=== PATIENT | male | born 1985 | race Caucasian/White ===

== ENCOUNTER 2016-12-16 21:55 | Inpatient (IN) | payer OTHER ==
[~2016-12-16] VITALS: Ht 170.2 cm; Wt 74.3 kg
[2016-12-16 22:07] VITALS: BP 140/86; PULSE 121; RESP 18; O2SAT 97
--- NOTE | 2016-12-16 22:39 | ED.REPORT ---
HPI-Extremity Problem Lower Date of Service Dec 16, 2016 ED Provider: Mu Blunt MD 31 y/o male with a hx of IV drug abuse presents to the ED complaining of pain, redness, and swelling about the right foot onset this morning. Associated sx include fever and SOB. He is currently feeling somewhat better. Pt has been using IV drugs since he was 16 but is planning on seeking treatment. He has no history of cellulitis or liver disease. He last used a few hours ago. Nursing Notes Stated Complaint: R FOOT/ANKLE SWOLLEN Chief Complaint: Skin Rash/Abscess Nursing Notes Reviewed: Yes Allergies: Coded Allergies: apple (Verified Allergy, Unknown, 12/16/16) onion (Verified Allergy, Unknown, 12/16/16) Miscellaneous Medications ([None]) General Time Seen by MD: 22:37 Chief Complaint Foot injury right Hx Obtained From: Patient Arrived By: Walk-in Onset Occurred: 21 - 23 hours ago Symptom Duration: Since onset Location: : Foot right Quality: Painful Severity: Current: Moderate Severity: Maximum: Moderate Associated with: Reports: Fever Recent Healthcare: No recent doctor visit Similar Sx Previous: No Past Medical History Past Medical History IV drug abuse Past Surgical History R wrist tendon repair Smoking History Current Every Day Smoker, Heavy Tobacco Smoker Social History Drug Use: IV drugs Ambulatory Status Independent Review of Systems Constitutional: Reports: Fever Musculoskeletal: Reports: Extremity pain, Extremity swelling Skin: Reports Rash Complete sys rev & neg: except as marked. Respiratory: Reports: Shortness of breath Physical Exam Initial Vital Signs Vital Signs (First) Date Time Temp Pulse Resp B/P Pulse Ox O2 Delivery O2 Flow Rate FiO2 12/16/16 22:07 38.2 121 18 140/86 97 Room Air Initial VS: Reviewed, Vital signs normal Head / Eyes: Atraumatic, Normocephalic, PERRL ENT: Mucous membranes moist, Conjunctiva normal, No scleral icterus Neck: Supple, Full range of motion Respiratory: Breath sounds normal, Clear to auscultation, No respiratory distress Cardiovascular: Regular rate & rhythm, Heart sounds normal, Intact distal pulses Abdomen / GI: Soft, Non-tender, No guarding, No rebound, No distention Upper Extremities: No swelling, No tenderness Neurologic: Alert, Oriented, Nonfocal Psychiatric: Mood/affect normal, Behavior normal, Normal thought content Lower Extremity / Pelvis / MS: Atraumatic, Full range of motion Lymphangitic streaking extending from medial right foot up to the right knee. Ankle / Foot: Atraumatic, Neurologic intact, Vascular intact, No ligamentous injury, No compartment syndrome General/Constitutional: Awake, Alert Skin: Warm, Dry Stigmata of IV drug use diffusely. Back: Atraumatic, Full range of motion Psychiatric: Affect NL, Mood NL Interpretation & Diagnostics Lab Results Interpretation Result Diagram: 12/16/16 2345 12/16/16 2345 Test 12/16/16 23:45 White Blood Count 12.6th/mm3 (3.8-10.1) Red Blood Count 4.98mil/mm3 (4.40-5.80) Hemoglobin 13.6g/dL (13.8-17.2) Hematocrit 41.5% (41.0-50.0) Mean Corpuscular Volume 83.3fL (81-100) Mean Corpuscular Hemoglobin 27.3pg (27.0-35.0) Mean Corpuscular Hemoglobin Concent 32.8% (32.0-37.0) Red Cell Distribution Width 14.3% (12.3-15.4) Platelet Count 303bil/L (150-400) Neutrophils (%) (Auto) 77.7% (40-74) Lymphocytes (%) (Auto) 14.4% (14-46) Monocytes (%) (Auto) 6.3% (4-12) Eosinophils (%) (Auto) 1.2% (0-5) Basophils (%) (Auto) 0.2% (0-3) Band Neutrophils % 0% (1-5) Erythrocyte Sedimentation Rate 30mm/hr (0-15) Hold Purple Top Tube Received (Received) Prothrombin Time 9.7sec (8.1-12.5) Prothromb Time International Ratio 0.91ratio Activated Partial Thromboplast Time 30.4sec (22.8-33.0) D-Dimer 0.59mg/L FEU (<0.50) Hold Blue Top Tube Received (Received) Sodium Level 141mEq/L (134-144) Potassium Level 3.6mEq/L (3.5-5.2) Chloride Level 99mEq/L (97-108) Carbon Dioxide Level 26mmol/L (18-29) Blood Urea Nitrogen 8mg/dL (6-20) Creatinine 0.62mg/dL (0.76-1.27) Estimat Glomerular Filtration Rate 161mL/min (>59) Glucose Level 125mg/dL (60-99) Lactic Acid Level 2.0mmol/L (0.4-2.0) Calcium Level 9.3mg/dL (8.5-10.1) Phosphorus Level 3.3mg/dL (2.5-4.9) Magnesium Level 2.0mg/dL (1.6-2.6) Total Bilirubin 0.3mg/dL (0.0-1.2) Aspartate Amino Transf (AST/SGOT) 41U/L (0-50) Alanine Aminotransferase (ALT/SGPT) 46U/L (0-44) Alkaline Phosphatase 109U/L (25-150) Pro-B-Type Natriuretic Peptide 49.90pg/mL (0-86) Total Protein 8.2g/dL (6.4-8.4) Albumin 4.1g/dL (3.4-5.0) Lipase 12U/L (13-60) Thyroid Stimulating Hormone (TSH) 0.693uIU/mL (0.450-4.500) Hold Red Top Tube Received (Received) Hold [place] Top Tube Received (Received) Hold [place] Top Tube Received (Received) X-Ray Chest Interpretation View: Portable, 1 view Interpretation / Wet Read by: Wet read ED physician NL X-Ray Chest Findings: No infiltrate, No acute disease Re-Eval/Medical Decision Med Decision/Clinical Course 31-year-old with a sixteen year history of IV drug use presents with rapidly advancing cellulitis and lymphangitis in an area on his foot involved in IV drug use earlier this morning. He has had subjective fevers and chills. He has lymphangitis up to level the knee at this point. His admit now for IV antibiotics to assure that this is healing, as he is borderline sepsis by criteria. Transported down stable condition. Source of Hx: Old records Re-Evaluation/Progress : Time of Eval: 23:23 Re-Evaluation/Progress Note: Pt rechecked. Discussed diagnosis. Informed the pt of the plan to admit. Pt understands and agrees with plan. All questions addressed. Consultation : Referral / Consult Name: Alec Sanches MD Call Returned at: 22:58 Handle Turner: Will see patient, Agrees with eval, Agrees with plan, Accepts admit Note: Discussed case with Dr. Sanches, hospitalist, who agreed with the plan to admit pt for IV antibiotics. Counseled Regarding: Diagnosis, Lab results, Need for admission Discharge & Departure Impression: Primary Impression: Cellulitis of right foot Additional Impression: IV drug abuse Disposition: ADMITTED TO HOSPITAL Discharge Condition All VS Reviewed: Yes Condition: Stable Referrals: NOPCP (PCP) Lisaibkanika Attestation Portions of this note were transcribed by Keenan Moseley and Pina Aaron. I, Dr. Blunt personally performed the history, physical exam and medical decision -making; I reviewed and confirmed the accuracy of the information in the transcribed note. Signed by Keenan Moseley and Chino Guardado, 12/16/16 - [id number] Mu Blunt MD Dec 16, 2016 22:39 Pina Aaron Dec 16, 2016 22:45 KEENAN MOSELEY Dec 16, 2016 23:29
[2016-12-16] MEDS ORDERED: Meropenem Inj 1,000 MG in 0.9% Sodium Chloride 100 ML IV ONE (23:25)
[2016-12-16] MEDS ORDERED: Clindamycin Inj 900 MG in IV Premix 1 EACH IV ONE (23:25)
[2016-12-16] MEDS ORDERED: Vancomycin Dose per Pharmacist XX ONE (23:25)
[2016-12-16] MEDS ORDERED: 0.9% Sodium Chloride 1,000 ML IV ONE (23:25)
[2016-12-16] MEDS ORDERED: Alum-Mag Hydrox-Simeth 30 mL Suspension PO PRN (23:35)
[2016-12-16] MEDS ORDERED: Ondansetron 2 mg/mL 2 mL Inj IVPUSH PRN (23:35)
[2016-12-16] MEDS ORDERED: Polyethylene Glycol (PEG) 17 Gm Powder PO PRN (23:35)
--- NOTE | 2016-12-16 23:44 | PCM.HPMED ---
Subjective Date of Service Dec 16, 2016 Primary Provider: Admitting Physician: Primary Care Physician: Mario Attending Physician: Admit Status: From the Emergency Department Chief Complaint: Pain and swelling of right foot History of Present Illness: Pleasant 31yo man, IVDU with no other medical history reports swelling and redness in his right foot since this morning followed in the evening by intense pain whereupon he went to the emergency room. He states he felt that injecting his last dose in the top of his foot he hit a nerve or a bone and has trouble finding usable veins. He has not had an infection from drug use before. His drug use history started at age 12 when he was given marijuana by his father. He tried cocaine at age 13, progressed to pills, then smoking crushed oxycodone, and started injecting heroin at age 16. He has overdosed 3-4 times and gone through Rehab 4 times. He does want to try Rehab again. He is currently very hot, a little short of breath, denies headache, sore throat, chest pain, cough, nausea, diarrhea, constipation. He states he is feels chronically cold. Review of Systems: 14point ROS is otherwise negative except as noted above in the HPI. Allergies Coded Allergies: apple (Verified Allergy, Unknown, 12/16/16) onion (Verified Allergy, Unknown, 12/16/16) Home Medications None PMH Polysubstance abuse Surgical History None Family History Father is mentally ill, uses meth, and has COPD Mother is an alcoholic, but otherwise healthy as far as the patient knows. Social History Hx Alcohol Use: No Hx Substance Use: Yes (marijuana OCCAS) Hx Tobacco Use: Yes Smoking Status: Current Every Day Smoker, Heavy Tobacco Smoker Living Arrangement: with Friends/Roommate Exam Vital Signs Vital Sign - Last Date Time Temp Pulse Resp B/P Pulse Ox O2 Delivery O2 Flow Rate FiO2 12/16/16 22:07 38.2 121 18 140/86 97 Room Air Exam General: Alert, Oriented X3, Cooperative, No Acute Distress Head: Normocephalic, atraumatic. External ears normal. Eyes: PERRLA, EOMI. Anicteric sclerae. Mouth: Mouth Normal, Mucous Membranes Moist/[place] Neck: Neck supple with full range of motion. Chest & Lungs: Clear to auscultation bilaterally with no crackles, wheezes, or rhonchi. Cardiovascular: Regular Rate/Rhythm, Normal S1, Normal S2, No Murmurs/Rubs/ Gallops Abdomen: Non-tender, Non-distended, No masses, Normoactive bowel tones, Soft Musculoskeletal: Normal Range of Motion Extremities: Right foot is erythematous and edematous to just beyond the malleoli, no open wounds or visible puncture maria. Assessment & Plan Pleasant 31yo man, IVDU here with an infection of his right foot after injecting heroin to the dorsal surface of same. He is feverish, but otherwise his vital signs are stable. Blood draw has been difficult in the ED, no cultures taken yet, no IV. 1. Acute Right foot Cellulitis from IV drug injection with possible sepsis, no labs yet. -Blood cultures x2 ordered, IV therapy has been requested -Continue broad spectrum antibiotics ordered in the ED, but not started yet due to difficult IV start: Clindamycin 900mg IV q8h, Vancomycin per pharmacy, and Meropenem 1gm IV q8h -Bolus NS 1 liter IV as soon as possible. 2. Heroin withdrawal, likely, not currently symptomatic except for mydriasis and elevated temperature which could also be attributed to bacteremia. -Monitor for symptoms of restlessness, lacrimation, NVD. Watch for increased vital signs. -Lorazepam 1mg PO q4h PRN for agitation 3. Tobacco abuse -Nicotine patch ordered PRN PRN medications for nausea, dyspepsia, constipation ordered. Pain Evaluation: Adequate Pain Control VTE Prophylaxis: Sub-Q Enoxaparin Resuscitation Status: CPR: Attempt Resuscitation Harrison Sanchez DO Dec 16, 2016 23:44 Alec Sanches MD Dec 17, 2016 06:52
[2016-12-17] MEDS ORDERED: Vancomycin Inj 1,250 MG in 0.9% Sodium Chloride 250 ML IV ONE (00:05)
[2016-12-17 00:15] LABS: Mean Corpuscular Hemoglobin 27.3 pg (27.0-35.0); Mean Corpuscular Volume 83.3 fL (81-100)
[2016-12-17 00:16] LABS: BASOPHILS % (AUTO) 0.2 % (0-3); EOSINOPHILS % (AUTO) 1.2 % (0-5); MONOCYTES % (AUTO) 6.3 % (4-12); NEUTROPHILS % (AUTO) 77.7 % (40-74); Platelet Count 303 bil/L (150-400)
[2016-12-17] MEDS: Sodium Chloride LOK Flush 10 mL Syringe IVFLUSH SCH ×3 (00:26→16:39)
[2016-12-17 00:28] LABS: D-Dimer 0.59 mg/L FEU (<0.50); INR 0.91 ratio
[2016-12-17 00:34] LABS: ERYTHROCYTE SEDIMENTATION RATE 30 mm/hr (0-15)
[2016-12-17 00:42] LABS: Phosphorus 3.3 mg/dL (2.5-4.9)
[2016-12-17 01:57] VITALS: BP 127/85; PULSE 102; RESP 18; O2SAT 99
[2016-12-17 02:24] VITALS: BP 120/79; PULSE 104; RESP 22; O2SAT 100
--- NOTE | 2016-12-17 05:01 | NUR ---
Admit pt admitted on [facility] room. Pt complains mostly of right leg pain. Denies chest pain, sob, n/v or abd discomfort. Pt appears to be intoxicated and has been slow on response. Pt admitted to have used Heroin yesterday around 2100. Pt's VSS, and has been afebrile upon arrival to the floor. Will continue to monitor.
[2016-12-17] MEDS ORDERED: 0.9% Sodium Chloride 1,000 ML IV ONE (07:15)
--- NOTE | 2016-12-17 08:14 | DRSVH ---
PROCEDURE: X-RAY CHEST ONE VIEW, PORTABLE ([id number]) INDICATIONS: ivda, leg cellulitis TECHNIQUE: One view of the chest was acquired. COMPARISON: None. FINDINGS: Surgical changes and devices: There is a metallic BB type density overlying the central aspect of the left lower lung field. Lungs and pleura: No pleural effusions or pneumothorax. Lungs are clear. Mediastinum: Mediastinal contours appear normal. Heart size is normal. Bones and chest wall: No suspicious bony lesions. Overlying soft tissues appear unremarkable. IMPRESSION: Acute disease is not seen in this semiupright portable chest . Metallic BB type density over the left lower lung field. Dictated by: Charles Haro M.D. on 12/17/2016 at 8:11 Approved by: Charles Haro M.D. on 12/17/2016 at 8:12
[2016-12-17] MEDS ORDERED: Vancomycin Inj 1,000 MG in IV Premix 1 EACH IV SCH (08:30)
[2016-12-17] MEDS: Vancomycin Dose per Pharmacist XX SCH ×2 (08:30→09:22)
--- NOTE | 2016-12-17 08:49 | NUR ---
Admit nurse: Pt reports no home meds and no pharmacy preference
[2016-12-17 08:55] LABS: APPEARANCE,URINE HAZY (CLEAR,HAZY); COLOR,URINE YELLOW (YELLOW); OCCULT BLOOD,URINE NEGATIVE (NEGATIVE); PH,URINE 6.5 (5.0-8.0); UROBILINOGEN,URINE NORMAL (NORMAL)
--- NOTE | 2016-12-17 10:18 | PCM.CONPHA ---
Subjective Pain and swelling of right foot Reason for Pharmacy Consult: Vancomycin Dosing Assessment/Plan Assessment/Plan Pharmacy Kinetic Dosing Vancomycin Indication: Rt foot cellulitis/possible osteo Goal vanc trough: 15-20 mcg/ml based on possible bone involvement Pt wt: 74.3.kg Other ABX: Rocephin SCr: 0.62 WBC: 12.6 (12/16), last febrile: 12/17/16 @0200 Cultures: Blood pending Assessment/Plan: - Loading dose of 1,250 mg given. Received one dose of vanc 1,000mg but will increase dose given new details about possible bone involvement and possible higher metabolism given hx of IVDU -Will schedule vancomycin to 1,250mg Q8h. -Will schedule trough level to be drawn on 12/18@1600 Pharmacy appreciates consult and will continue to monitor. Thanks, Lester Moya, PharmD Lester Moya Dec 17, 2016 10:18
--- NOTE | 2016-12-17 11:15 | PCM.PNMED ---
Subjective Date of Service Dec 17, 2016 Subjective patient was in pain due to Rt foot, c/o chills, coldness collateral info from sister, patient recently newly developed seizure, grand-mal , at least 30-1min followed by confusion. last episode was about week ago seizure started since Oct, no seizures in the past, Exam Vital Signs Vital Sign - Last Date Time Temp Pulse Resp B/P Pulse Ox O2 Delivery O2 Flow Rate FiO2 12/17/16 02:24 37.3 104 22 120/79 100 Room Air Intake and Output 12/16/16 12/16/16 12/17/16 Cumulative From/Thru 15:00 23:00 07:00 12/16/16 22:07 - 12/17/16 02:09 Intake Total 1000 ml 1000 ml Balance 1000 ml 1000 ml Intake IV Total 1000 ml 1000 ml Exam NAD, comfortably laying down on the bed no JVD, MMM, no LAD RRR, nl s1, s2 no mrg CTAB, no w,c S,ND,NT,normoactive BS+ Rt foot, diffuse erythema, extremely tender, no demarcation, no ulcers/ fluctuance IVs and Medications Medications Reviewed: Medications were reviewed in detail Lab and Diagnostics Result Diagram: 12/16/16 2345 12/16/16 2345 Assessment & Plan Pleasant 31yo man, IVDU here with an infection of his right foot after injecting heroin to the dorsal surface of same. He is feverish, but otherwise his vital signs are stable. Blood draw has been difficult in the ED, no cultures taken yet, no IV. #sepsis, POA, SIRS+ wbc/HR/fever, source likely cellulitis vs underlying OM in the setting of IM heroin use -bolus 1liters in ED, another bolus 1liter this AM, followed by 100cc/hr, target MAP>65 -awaits BCX 2sets -trend fever curve, procalcitonin, wbc -s/p vanc, meropenem, clindamycin, will continue vanc, ceftriaxone for now #Diffuse rt foot erythema, tenderness, OPA, likely cellulitis vs underlying OM, -awaits MRI with Walod of Rt foot to rule out OM -morphine 1-4mg q2h for pain, monitor respiratory status to avoid excessive sedation #recent seizure hx, POA, would consider brain images if patient MS changes or another episode of seizure happens, -ativan 2mg prn for possible seizure -neurochecks q4h -try to avoid all drugs that lowers seizure threshold #Polysubstance abuse, nicotine/opioid, POA, appreciate SW/CM input, -monitor for possible etoh WD, opioid WD -added Utox panel -Nicotine patch ordered PRN dispo: likely 3-4more days, diet: regular dvt ppx: LMWH Full Code VTE Prophylaxis: Sub-Q Enoxaparin Resuscitation Status: CPR: Attempt Resuscitation Time spent 35 minutes Reese Nguyen MD Dec 17, 2016 11:15 Reese Nguyen MD Dec 17, 2016 11:15
[2016-12-17] MEDS ORDERED: cefTRIAXone Inj 2,000 MG in Dextrose 5% Minibag Plus 50 ML IV SCH (13:00)
[2016-12-17 13:43] VITALS: BP 141/92; PULSE 77; RESP 22; O2SAT 98
--- NOTE | 2016-12-17 13:58 | DRSVH ---
PROCEDURE: X-RAY CHEST, TWO VIEWS ([id number]) INDICATIONS: metalic BB pre MRI TECHNIQUE: 2 views of the chest were acquired. COMPARISON: [facility], CR, XR CHEST 1VW (PORTABLE), 12/16/2016, 23:37. FINDINGS: Surgical changes and devices: None. Lungs and pleura: No pleural effusions or pneumothorax. Lungs are clear. Mediastinum: Mediastinal contours are normal. Heart size is normal. Bones and chest wall: No suspicious bony abnormalities. Soft tissues appear unremarkable. Metallic BB type density overlying the anterior left chest wall. IMPRESSION: Left anterior chest wall BB type density redemonstrated otherwise normal chest. Dictated by: Wilfredo Love Zoe Interpreted: Cedric Dixon MD on 12/17/2016 at 13:57 Transcribed by: JOSEE on 12/17/2016 at 13:58 Approved by: Cedric Dixon M.D. on 12/17/2016 at 14:50
--- NOTE | 2016-12-17 15:03 | DRSVH ---
PROCEDURE: MRI FOREFOOT RIGHT WITH AND WITHOUT CONTRAST ([id number]) INDICATIONS: 31-year-old male with drug abuse and right foot infection. TECHNIQUE: Noncontrast sagittal T1 spin echo and T2 fast spin echo with fat saturation, long-axis T1 spin echo a nd T2 fast spin echo with fat saturation; short-axis T1 spin echo, proton density fast spin echo, and T2 fast spin echo with fat saturation through the forefoot. Post-contrast short axis, long axis, an d sagittal T1 spin echo with fat saturation through the forefoot. COMPARISON: None. FINDINGS: Image quality: Excellent. Bones and joints: No suspicious osseous enhancement or edema. No bone marrow contusions or metatars al stress fractures. The sesamoid bones appear in expected positions, without internal edema. No me tatarsophalangeal joint degeneration. No intraosseous lesions. Soft tissues: There is diffuse forefoot and midfoot subcutaneous edema, with associated regional enh ancement dorsal to the medial midfoot. The visualized deeper plantar foot muscles demonstrate normal signal and bulk. Visualized flexor and extensor tendons appear intact, without tenosynovitis. No ri m-enhancing fluid collections. IMPRESSION: Findings consistent with dorsal forefoot and midfoot cellulitis, without abscess formatio n. No evidence for pyomyositis or osteomyelitis. Dictated by: Vikash Pereira M.D. on 12/17/2016 at 14:54 Approved by: Vikash Pereira M.D. on 12/17/2016 at 15:01
--- NOTE | 2016-12-17 16:22 | NUR ---
Pain Patient reporting persistent throbbing pain in Rt foot/ankle of 10/10, decreasing to 8/10 with medications. Patient reporting that foot appears more swollen since last night. Foot/ankle shiney/pink in appearance. Attempting to keep foot elevated.
[2016-12-17] MEDS: Vancomycin Inj 1,250 MG in 0.9% Sodium Chloride 250 ML IV SCH (16:47)
[2016-12-17 17:28] VITALS: BP 122/73; PULSE 109; RESP 20; O2SAT 100
[2016-12-17 21:08] VITALS: BP 139/83; PULSE 109; RESP 25; O2SAT 99
[2016-12-17] MEDS ORDERED: Piper-Tazo 4.5 Gm/100 mL D5W Minibag Plus - Q8H over 4 hrs IV ONE ×2 (23:00)
[2016-12-18] MEDS: Vancomycin Inj 1,250 MG in 0.9% Sodium Chloride 250 ML IV SCH ×3 (00:49→16:48)
[2016-12-18] MEDS: Sodium Chloride LOK Flush 10 mL Syringe IVFLUSH SCH ×3 (00:50→16:49)
[2016-12-18 02:09] LABS: Hepatitis A Antibody IgM Negative (Negative); Hepatitis B Core Antibody IgM Negative (Negative)
--- NOTE | 2016-12-18 05:26 | NUR ---
NOC activity Pt complains of leg pain of 10/10. Has been concerned about the bruising around his foot and ankle. IV morphine administered PRN. IV ABx administered as scheduled. Pt's IV got infiltrated and repositioned to different location. Had an episode of fever, notified and ordered Tylenol one time dose and stat blood culture. Will continue to monitor.
[2016-12-18 06:08] VITALS: BP 113/73; PULSE 104; RESP 20; O2SAT 98
[2016-12-18 07:06] LABS: BASOPHILS % (AUTO) 0.2 % (0-3); EOSINOPHILS % (AUTO) 2.6 % (0-5); MONOCYTES % (AUTO) 10.7 % (4-12); Mean Corpuscular Hemoglobin 27.5 pg (27.0-35.0); Mean Corpuscular Volume 84.2 fL (81-100); NEUTROPHILS % (AUTO) 72.2 % (40-74); Platelet Count 255 bil/L (150-400)
[2016-12-18 07:30] LABS: Magnesium 2.1 mg/dL (1.6-2.6)
[2016-12-18] MEDS: Vancomycin Dose per Pharmacist XX SCH (08:30)
[2016-12-18] MEDS ORDERED: Piperacillin-Tazo 3.375 Gm Inj 3.375 GM in Dextrose 5% Minibag Plus 50 ML IV SCH (08:30)
[2016-12-18] MEDS: Morphine ER 30 mg (MS Contin) Tablet PO SCH ×2 (12:10→19:36)
--- NOTE | 2016-12-18 12:39 | PCM.PNMED ---
Subjective Date of Service Dec 18, 2016 Subjective Patient became febrile again with vancomycin and ceftriaxone therefore ceftriaxone was switched to Zosyn Patient remained tachycardic, fever was controlled with Tylenol Plan of severe pain on the right foot, not well controlled with when necessary morphine dosing ID was consulted for further recommendation Partial culture result came back gram-positive cocci ottles Exam Vital Signs Vital Sign - Last Date Time Temp Pulse Resp B/P Pulse Ox O2 Delivery O2 Flow Rate FiO2 12/18/16 06:08 37.0 104 20 113/73 98 Room Air Intake and Output 12/17/16 12/17/16 12/18/16 Cumulative From/Thru 15:00 23:00 07:00 12/16/16 22:07 - 12/18/16 05:42 Intake Total 600 ml 679 ml 2279 ml Output Total 1850 ml 1850 ml Balance -1250 ml 679 ml 429 ml Intake Oral 600 ml 600 ml IV Total 679 ml 1679 ml Output Urine Total 1850 ml 1850 ml # Bowel Movements 1 1 Exam NAD, comfortably laying down on the bed no JVD, MMM, no LAD RRR, nl s1, s2 no mrg CTAB, no w,c S,ND,NT,normoactive BS+ Rt foot, there is distinctive erythema, extremely tender, no demarcation, no ulcers/fluctuance IVs and Medications Medications Reviewed: Medications were reviewed in detail Lab and Diagnostics Result Diagram: 12/18/16 0530 12/18/16 0530 Assessment & Plan 31-year-old male with long hx of IVDU p/w Rt foot pain, fever. #sepsis, POA, SIRS+ wbc/HR/fever, source likely cellulitis, MRI 12/17 ruled out OM, abscess, fasciitis. prelim cultures+ GPC 2/4 -HD stable, but had recurrent fever yesterday, remained tachycardic, likely from pain response. -bolus 1liters in ED, another bolus 1liter this AM, followed by 100cc/hr, target MAP>65 -awaits final BCX 2sets -trend fever curve, procalcitonin, wbc -s/p vanc, meropenem, clindamycin, continue vanc, zosyn, appreciate ID input #Diffuse rt foot erythema, tenderness, OPA, likely cellulitis -abx as above -morphine 1-4mg q2h for pain, monitor respiratory status to avoid excessive sedation -added MS contine 30mg bid today for better pain control #recent seizure hx, POA, would consider brain images if patient MS changes or another episode of seizure happens, -ativan 2mg prn for possible seizure -neurochecks q4h -try to avoid all drugs that lowers seizure threshold #Polysubstance abuse, nicotine/opioid, POA, UTOX+opioid, amphetamine, no ETOH, -appreciate SW/CM input, -monitor for possible opioid WD -Nicotine patch ordered PRN dispo: likely 4-5more days, diet: regular dvt ppx: LMWH Full Code VTE Prophylaxis: Sub-Q Enoxaparin VTE Mechanical Devices: Venous Foot Pump Resuscitation Status: CPR: Attempt Resuscitation Time spent 35min Reese Nguyen MD Dec 18, 2016 12:39
[2016-12-18] MEDS: 0.9% Sodium Chloride 1,000 ML IV SCH ×2 (12:43→21:24)
[2016-12-18 14:11] VITALS: BP 128/73; PULSE 102; RESP 22; O2SAT 100
--- NOTE | 2016-12-18 14:22 | NUR ---
Social Work -Brief Note Data: Pt is a 31 y/o male admitted 12/17/16 for cellulitis r leg, post IVDA per H&P. Pt has no PCP and insurance is [facility]. Pt was discussed in rounds today and is very septic, will be in the hospital at least 2 more days. Pt resides with friends in [place] and is indepednent at baseline. Pt is a long-term IV drug user. See chemical dependency assessment. Pt is open to meeting with CDP from [facility] to discuss treatment options and JADA was completed. Friends/family will provide discharge home when it is time. SW will continue to follow for needs. Assessment: Pt who is independent at baseline. Retirement IV drug user Plan: Pt to discharge home via POV. Referral made to [facility] CDP. SW will continue to follow for needs. AUSTYN Soria
--- NOTE | 2016-12-18 14:36 | NUR ---
+ blood cultures pt with 2+ blood cultures (Cocci). aware. ID consult pending. IV Zosyn infusing. Pt tolerating abx well. Will continue to monitor.
--- NOTE | 2016-12-18 15:09 | NUR ---
Social Work - Chemical Dependency: Current Circumstances: SW met with pt at bedside to complete CD assessment and offer resources. SW role explained. Pt is a 31 y/o male admitted on 12/17/16 for cellulitis R leg, post IVDA per H&P. Pt reports he is a senior care IV drug user. Hx of substance abuse: Pt reports consistent IV drug use for 15 years. Pt states he uses heroin, as well as meth and marijuana. History of treatment programs: Pt states he has been through inpatient treatment 4 times in the past 15 years, most recently one year ago. He has also participated in outpatient treatment, lived at an [facility], and went to NA meetings. Hx of withdrawal symptoms. Pt states he has experienced withdrawal symptoms, and is presently experiencing them. Family hx: Pt states his father was addicted to "everything" Hx of sobriety and supports: Pt states he has been able to stay sober for up to two months at a time, and that meetings, talking to his sponsor, and living at an [facility] were helpful in staying sober. Pt's perceptions of consequences of use/motivation for tx: Pts states he would like to stop using and his motivation on a scale of 1 to 10 to stop is currently at a 10. Pt expressed openness to meeting with CDP from [facility] to get further support with treatment options. Suicide risk: Pt denies any current or past suicidal ideation. Discharge plan: Pt to discharge home via POV when medically stable. JADA completed for [facility]. Social work will continue to follow for needs. AUSTYN Soria
[2016-12-18] MEDS ORDERED: Vancomycin Serum Trough XX ONE (16:00)
--- NOTE | 2016-12-18 16:31 | DRSVH ---
[facility] [address] [place] [address] Echocardiogram Report Name: MARITA PEARSON BStudy Date: 12/18/2016 Height: 67 in Hospital Exam Location: [facility] Weight: 164 lb Gender: Male BSA: 1.9 m2 : 1985 Age: 31 yrs BP: 128/73 mmHg Reason For Study: Endocarditis Ordering Physician: Performed By: Kathleen [facility] Interpretation Summary The left ventricle is normal in size. The ejection fraction is estimated to be 55-60%. The right ventricle is normal in size, thickness and function. No significant valvular pathology seen. No obvious vegetation seen. Consider MARTHA if clinical suspicion for endocarditis is high. Procedure: A two-dimensional transthoracic echocardiogram with color flow and Doppler was performed. The study quality was technically good. There is no prior echocardiogram noted for this patient. The heart rate ranged between 100-104 bpm during the study. The patient was in sinus tachycardia with heart rates between 100-104 bpm during the exam. Left Ventricle: The left ventricle is normal in size. There is normal left ventricular wall thickness. There is no thrombus. The ejection fraction is estimated to be 55-60%. There are no focal wall motion abnormalities. Diastolic function could not be accurately assessed due to tachycardia. Right Ventricle: The right ventricle is normal in size, thickness and function. Atria: The left atrial size is normal. Right atrial size is normal. A prominent eustachian valve is noted. The interatrial septum is intact with no evidence for an atrial septal defect. Mitral Valve: The mitral valve is normal in structure and function. There is no vegetation seen on the mitral valve. There is no mitral regurgitation noted. Aortic Valve: The aortic valve is trileaflet. The aortic valve opens well. There is no aortic valvular vegetation. There is no aortic valve stenosis. No aortic regurgitation is present. Tricuspid Valve: The tricuspid valve is normal in structure and function. There is no tricuspid valve vegetation. No tricuspid regurgitation. Pulmonic Valve: The pulmonic valve is normal in structure and function. There is no vegetation on the pulmonic valve. There is no pulmonic valvular regurgitation. Great Vessels: The aortic root is normal size. The dimensions of the ascending aorta are normal. The IVC is of normal diameter and collapses less than 50% with a sniff. This suggests a right atrial pressure of 8 mm Hg. Pericardium/ Pleura There is no pericardial effusion. There is no pleural effusion. MMode/2D Measurements & Calculations LVIDd: 5.2 cm LA dimension Ao root diam LV bradford. diameter/BSA LVIDs: 3.4 cm (cm/m^2): 2.8 FS: 33.2 % IVC diam Aortic Jxn: 2.5 cm IVSd: 0.77 cm : 1.9 cm asc Aorta Diam LVPWd: 0.82 cm Ao Arch Diam (Prox Trans): 2.9 cm LV sys. diameter/BSA (cm/m^2): 1.9 Doppler Measurements & Calculations Ao V2 max MV P1/2t PA V2 max MV P1/2t max rose marie : 74.8 cm/sec : 72.2 msec : 82.9 cm/sec Ao max PG PA mean PG : 2.2 mmHg MVA(P1/2t): 3.0 cm2 Ao mean PG PA Accel Time : 1.1 mmHg Ao V2 mean PA V2 mean : 47.4 cm/sec : 59.2 cm/sec Ao V2 VTI: 14.6 cm Reading Physician:MARILY
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
[2016-12-18 17:53] VITALS: BP 129/85; PULSE 108; RESP 18; O2SAT 98
--- NOTE | 2016-12-18 18:42 | NUR ---
Temp pt with increasing temp, Dr notified. Waiting to hear back. Pt appears comfortable, denies chills. Tolerating IV abx well.
[2016-12-18 21:19] VITALS: BP 130/76; PULSE 105; RESP 18; O2SAT 99
[2016-12-19] MEDS: Sodium Chloride LOK Flush 10 mL Syringe IVFLUSH SCH ×4 (00:30→23:51)
[2016-12-19 00:35] VITALS: BP 124/73; PULSE 100; RESP 18; O2SAT 98
[2016-12-19] MEDS: Vancomycin Inj 1,250 MG in 0.9% Sodium Chloride 250 ML IV SCH ×2 (01:42→08:31)
--- NOTE | 2016-12-19 04:21 | NUR ---
NOC: tolerating IV vanco, Left brachial PIV. trough today at 1600. R foot elevated on pillow, continues to be red, warm to touch, tender. MS 2mg given [id number] thru noc, will begin stretching out time as he appears to be sleeping more, does not awaken so easily w/ verbal stimuli. temp last PM was 38.1, has been 37.0 tonight. encouraged to increase mobility. states he understands. friend remains at bedside.
[2016-12-19 04:41] VITALS: BP 126/68; PULSE 98; RESP 18; O2SAT 98
[2016-12-19 06:36] LABS: BASOPHILS % (AUTO) 0.1 % (0-3); EOSINOPHILS % (AUTO) 1.3 % (0-5); Mean Corpuscular Hemoglobin 27.7 pg (27.0-35.0); Mean Corpuscular Volume 82.8 fL (81-100); NEUTROPHILS % (AUTO) 77.8 % (40-74); Platelet Count 328 bil/L (150-400)
[2016-12-19 06:58] LABS: Magnesium 1.9 mg/dL (1.6-2.6); Phosphorus 3.5 mg/dL (2.5-4.9)
[2016-12-19] MEDS: Vancomycin Dose per Pharmacist XX SCH (08:32)
[2016-12-19] MEDS: 0.9% Sodium Chloride 1,000 ML IV SCH ×2 (08:32→23:51)
[2016-12-19] MEDS ORDERED: Vancomycin Inj 250 MG in 0.9% Sodium Chloride 100 ML IV ONE (09:15)
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
--- NOTE | 2016-12-19 10:59 | PCM.PNMED ---
Subjective Date of Service Dec 19, 2016 Subjective Pain was better better control with MS Contin Tachycardia is getting resolved Had another episode of fever yesterday afternoon Overall vision felt better Echocardiogram did not show any vegetations Exam Vital Signs Vital Sign - Last Date Time Temp Pulse Resp B/P Pulse Ox O2 Delivery O2 Flow Rate FiO2 12/19/16 04:41 36.8 98 18 126/68 98 Room Air Intake and Output 12/18/16 12/18/16 12/19/16 Cumulative From/Thru 15:00 23:00 07:00 12/16/16 22:07 - 12/19/16 06:03 Intake Total 1645 ml 1531 ml 5455 ml Output Total 1400 ml 1850 ml 5100 ml Balance 245 ml -319 ml 355 ml Intake Oral 420 ml 300 ml 1320 ml IV Total 1225 ml 1231 ml 4135 ml Output Urine Total 1400 ml 1850 ml 5100 ml # Bowel Movements 0 0 1 Exam NAD, comfortably laying down on the bed no JVD, MMM, no LAD RRR, nl s1, s2 no mrg CTAB, no w,c S,ND,NT,normoactive BS+ Rt foot, there is distinctive erythema, moderately tender, no demarcation, no ulcers/fluctuance IVs and Medications Medications Reviewed: Medications were reviewed in detail Lab and Diagnostics Result Diagram: 12/19/1651912/19/16519 Cardiac Echo Impressions Echocardiogram Report Name: MARITA PEARSON BStudy Date: 12/18/2016 Height: 67 in Hospital Exam Location: [facility] Weight: 164 lb Gender: Male BSA: 1.9 m2 : 1985 Age: 31 yrs BP: 128/73 mmHg Reason For Study: Endocarditis Ordering Physician: Performed By: Kathleen [facility]Saint [facility] Interpretation Summary The left ventricle is normal in size. The ejection fraction is estimated to be 55-60%. The right ventricle is normal in size, thickness and function. No significant valvular pathology seen. No obvious vegetation seen. Consider MARTHA if clinical suspicion for endocarditis is high. Assessment & Plan 31-year-old male with long hx of IVDU p/w Rt foot pain, fever. #sepsis, POA, SIRS+ wbc/HR/fever, source likely cellulitis, MRI 12/17 ruled out OM, abscess, fasciitis. prelim cultures staph+10/06. TTE neg for signs of endocarditis. -HD stable, but had recurrent fever for [id number], clinically improving. -bolus 1liters in ED, another bolus 1liter this AM, followed by 100cc/hr, target MAP>65 -awaits final BCX 2sets -trend fever curve, procalcitonin, wbc -s/p vanc, meropenem, clindamycin, continue vanc, zosyn was stopped 12/18, appreciate ID input -MARTHA indicated, will ask today. #Diffuse rt foot erythema, tenderness, OPA, likely cellulitis -abx as above -morphine 1-4mg q2h for pain, monitor respiratory status to avoid excessive sedation -added MS contine 30mg bid 12/18, seems working well. #recent seizure hx, POA, would consider brain images if patient MS changes or another episode of seizure happens, -ativan 2mg prn for possible seizure -neurochecks q4h -try to avoid all drugs that lowers seizure threshold #Polysubstance abuse, nicotine/opioid, POA, UTOX+opioid, amphetamine, no ETOH, -appreciate SW/CM input, -monitor for possible opioid WD -Nicotine patch ordered PRN dispo: likely 3-4more days, diet: regular, will place NPO after MN for possible MARTHA tomorrow dvt ppx: LMWH Full Code VTE Prophylaxis: Sub-Q Enoxaparin Resuscitation Status: CPR: Attempt Resuscitation Time spent 35min Reese Nguyen MD Dec 19, 2016 10:55
--- NOTE | 2016-12-19 11:12 | PCM.PHAPRO ---
Progress Pain and swelling of right foot VANCOMYCIN DOSING PER PHARMACY Indication: cellulitis vs osteo Trough: 9.0 Dose: 1250mg Q8 SCr: 0.5 (stable) WBC: 13.8 (uptrending); Febrile last PM Blood cx: S. aureus (sensi pending) A/P - Subtherapeutic level with worsening WBC. Still febrile at times. Positive staph cultures with sensi pending -Will increase dose to 1,500mg q8 given acute presentation -Trough scheduled for 12/20@1600 -Pharmacy will continue to monitor Lester Moya, PharmD Lester Moya Dec 19, 2016 11:06
--- NOTE | 2016-12-19 11:39 | NUR ---
Asleep/Pain meds All morning so far, pt has been sleeping. 1 male visitor in the room also asleep in the room. IV abx hung and pt tolerated it well. AM pain meds held d/t pts current state. Will continue to monitor.
[2016-12-19 13:30] VITALS: BP 126/78; PULSE 98; RESP 18; O2SAT 99
[2016-12-19] MEDS ORDERED: Vancomycin Serum Trough XX ONE (16:00)
[2016-12-19] MEDS: Vancomycin Inj 1,500 MG in 0.9% Sodium Chloride 500 ML IV SCH ×2 (16:22→23:51)
[2016-12-19] MEDS: Morphine ER 30 mg (MS Contin) Tablet PO SCH ×2 (16:23→20:49)
[2016-12-19 20:11] VITALS: BP 121/77; PULSE 106; RESP 18; O2SAT 100
[2016-12-20] VITALS (8 sets, daily range): BP systolic 97–126; BP diastolic 62–81; PULSE 90–107; RESP 17–21; O2SAT 96–100
--- NOTE | 2016-12-20 03:30 | NUR ---
NOC shift Patient has been completely alert and oriented while awake, reports that he is feeling "way better" and that right leg swelling has decreased. Reports pain at 5-8/10, decreased from 10/10 that he reported last night. One dose of PRN Morphine given this shift, and scheduled PO ER-Morphine. Vital signs stable, afebrile. IV Vanco infused as ordered, IV site remained asymptomatic. Patient had visitors in evening, one stayed overnight. Both appropriate with staff and cooperative with care. Patient aware that he is to be NPO at midnight for planned MARTHA. Frequent monitoring in place.
[2016-12-20] MEDS: 0.9% Sodium Chloride 1,000 ML IV SCH (04:40)
[2016-12-20 06:30] LABS: BASOPHILS % (AUTO) 0.2 % (0-3); EOSINOPHILS % (AUTO) 3.3 % (0-5); MONOCYTES % (AUTO) 10.8 % (4-12); Mean Corpuscular Hemoglobin 27.1 pg (27.0-35.0); Mean Corpuscular Volume 82.6 fL (81-100); NEUTROPHILS % (AUTO) 67.7 % (40-74); Platelet Count 334 bil/L (150-400)
[2016-12-20 06:46] LABS: Magnesium 1.9 mg/dL (1.6-2.6); Phosphorus 4.6 mg/dL (2.5-4.9)
[2016-12-20] MEDS ORDERED: Morphine ER 30 mg (MS Contin) Tablet PO SCH (08:30)
[2016-12-20] MEDS: Vancomycin Dose per Pharmacist XX SCH (08:30)
[2016-12-20] MEDS: Sodium Chloride LOK Flush 10 mL Syringe IVFLUSH SCH ×2 (08:30→17:18)
[2016-12-20] MEDS: Vancomycin Inj 1,500 MG in 0.9% Sodium Chloride 500 ML IV SCH ×2 (09:09→17:17)
[2016-12-20] MEDS ORDERED: Propofol 10,000 mCg/mL 20 mL Inj ONE (09:29)
--- NOTE | 2016-12-20 14:00 | NUR ---
MARTHA Pt transfered at 1400 from [facility] to [facility] via wheelchair. No s/s of distress at time of tfr pt returned from procedure at 1600. Pt denies any pain. NPO status changed to general diet. Pt ordered dinner.
--- NOTE | 2016-12-20 14:00 | NUR ---
TRANSFERED FROM [facility] FOR MARTHA.
--- NOTE | 2016-12-20 14:30 | NUR ---
MD HERE. SEE FLOW SHEETS
[2016-12-20] MEDS ORDERED: Lactated Ringer's 500 ML IV PRN (14:34)
[2016-12-20] MEDS ORDERED: Lactated Ringer's 1,000 ML IV SCH (14:34)
--- NOTE | 2016-12-20 14:34 | PCM.HPANE ---
Patient Data Date of Service: Dec 20, 2016 Surgeon Admitting Provider:Alec Sanches MD Attending Provider:Alec Sanches MD Primary Care Physician:Nopcp Other Provider: Reason for Visit Cellulitis R Leg, Post Ivda Ht/WT & BMI Height (Feet): 5 Height (Inches): 7.00 Weight (Kilograms): 74.300 Body Mass Index 25.71 Allergies Coded Allergies: apple (Verified Allergy, Unknown, 12/16/16) onion (Verified Allergy, Unknown, 12/16/16) Past Anesthesia History Anesthesia History: Denies:: Abnormal Airway, Anesthesia Reactions, Difficult Intubation, Fam Anesthesia Reaction, Fam Malignant Hypertherm, Malignant Hyperthermia Diabetes History Hx Diabetes?: No Medications Hypertension Medication: No Home Meds Incl Beta Wolf: No Reported Medications [None] No Conflict Check 07/18/13 History History of ENT Problems?: No HEENT History: Denies:: Abnormal Airway Cataracts Difficult Intubation Dysphagia Glaucoma Hearing Problem Sinus Problem TMJ Denture Type: Full- Upper Teeth Condition: Within Normal Limits Hx of Heart Problems?: No Cardiovascular History: Denies:: Congestive Heart Failure Hypertension Hx of Respiratory Problem?: No Respiratory History: Denies:: Tuberculosis Hx Neurologic Problems?: Yes Neurological History: Positive for:: Dizziness Headaches Seizures (States he had an episodes of seizure) Denies:: Alzheimer's Disease CVA Dementia Hx of GI Problems?: No Hx of Problems?: No HX of Peritoneal Dialysis: No Male Hx: Denies:: Prostate Problems Scrotal Mass Testicular Surgery Hx Musculoskeletal Problems?: No Hx of Psycho/Social Problems?: Yes Psycho Social History: Positive for:: Anxiety Denies:: Bipolar Disorder Hx Depression Suicide Attempt Hx Surgeries?: Yes (R wrist tendon repair) Other History: Denies:: Cancer Hospitalization Thyroid Disease History Blood Transfusions: Positive for:: Accept Blood Products? Denies:: Blood Transfuse Reaction Blood Transfusions Hx Diabetes: No Hx Alcohol Use: NoHx Substance Use: Yes (12/16 2100) Smoking Status: Current Every Day Smoker Heavy Tobacco Smoker Have You Smoked inLast 12 mo: YesApprox How Many Cigarettes/day: 09/05 PPD Stop/Bang Treated for Sleep Apnea?: No Do You Have a CPAP Machine?: No JERRELL Risk Assessment: Low Risk, <3 Yes Risk Assessment Category Category 1A: Patient has history of documented sleep apnea, and HAS NOT received any narcotic, sedative or anesthesia administration during this stay. Category 1B: Patient has history of documented sleep apnea, and HAS received any narcotic , sedative or anesthesia administration during this stay Category 2: Patient has SUSPECTED Obstructive Sleep Apnea, and HAS received any narcotic , sedative or anesthesia administration during this stay. Category 3: Patient has SUSPECTED Obstructive Sleep Apnea and HAS NOT received narcotic, sedative or anesthesia administration during this stay. Category 4: Outpatient in Procedural Areas with known sleep apnea or who screen positive for High Risk via the STOP/BANG questionnaire. Exam Exam Vital Signs Vital Signs Date Time Temp Pulse Resp B/P Pulse Ox O2 Delivery O2 Flow Rate FiO2 12/20/16 14:10 99 21 124/78 100 Room Air 12/20/16 13:23 36.7 92 17 120/81 100 Room Air 12/20/16 09:11 36.1 96 18 112/78 100 Room Air General Appearance: Oriented X3 HEENT/AIRWAY: MP 2 Lungs: Normal Air Movement Heart: Regular Rate/Rhythm Meds/Labs/Diagnostics Admission Meds Current Medications Vancomycin HCl/ Sodium Chloride (Vancocin Inj/ Normal Saline) 500 ml @ 333.333 mls/hr Q8 IV Last administered on 12/20/16 09:09; Start 12/19/16 at 16:30 Morphine Sulfate (MS Contin) 15 mg BID PO Last administered on 12/20/16 09:04 ; Start 12/20/16 at 08:30 Labs Test 12/16/16 23:45 12/17/16 08:00 12/17/16 08:23 12/17/16 12:15 Band Neutrophils % 0% (1-5) Erythrocyte Sedimentation Rate 30mm/hr (0-15) Hold Purple Top Tube Received (Received) Prothrombin Time 9.7sec (8.1-12.5) Prothromb Time International Ratio 0.91ratio Activated Partial Thromboplast Time 30.4sec (22.8-33.0) D-Dimer 0.59mg/L FEU (<0.50) Hold Blue Top Tube Received (Received) Pro-B-Type Natriuretic Peptide 49.90pg/mL (0-86) Lipase 12U/L (13-60) Thyroid Stimulating Hormone (TSH) 0.693uIU/mL (0.450-4.500) Hold [place] Top Tube Received (Received) Hold [place] Top Tube Received (Received) Alcohols < 10mg/dL (0-10) Urine Color Yellow (YELLOW) Urine Appearance Hazy (CLEAR,HAZY) Urine pH 6.5 (5.0-8.0) Urine Specific [place] 1.030 (1.003-1.035) Urine Protein Tracemg/dL (NEG,TRACE) Urine Glucose (UA) Negativemg/dL (NEGATIVE) Urine Ketones Negativemg/dL (NEGATIVE) Urine Occult Blood Negative (NEGATIVE) Urine Nitrite Negative (NEGATIVE) Urine Bilirubin Negative (NEGATIVE) Urine Urobilinogen Normalmg/dL (NORMAL) Urine Leukocyte Esterase Negative (NEGATIVE) Urine RBC 0-2/hpf (0-2) Urine WBC 0-5/hpf (0-5) Urine Epithelial Cells Occasional/hpf (NONE-MOD) Urine Crystals None seen (NONE SEEN) Urine Bacteria None/hpf (NONE-FEW) Urine Hyaline Casts None/lpf (NONE) Urine Granular Casts None seen (NONE SEEN) Urine Waxy Casts None seen (NONE SEEN) Urine Red Blood Cell Casts None seen (NONE SEEN) Urine White Blood Cell Casts None seen (NONE SEEN) Urine Mucus Present (None Seen) Urine Trichomonas None seen (NONE SEEN) Urine Yeast None (NONE SEEN) Urinalysis Comment Urine Culture Reflexed Not indicated Urine Opiates Screen Positive Urine Methadone Screen Negative Urine Barbiturates Screen Negative Urine Amphetamines Screen Positive Urine Benzodiazepines Screen Negative Urine Cocaine Metabolite Screen Negative Urine Cannabinoids Screen Negative Hepatitis A IgM Antibody Negative (Negative) Hepatitis B Surface Antigen Negative (Negative) Hepatitis B Core IgM Antibody Negative (Negative) Hepatitis C Antibody <0.1s/co ratio (0.0-0.9) Hepatitis C Comment Comment (.) HIV (1&2) Ag and Ab, 4th Generation Non reactive (Non Reactive) Test 12/17/16 15:45 12/17/16 21:50 12/18/16 16:00 12/19/16 05:20 Hold Red Top Tube Received (Received) Lactic Acid Level 2.2mmol/L (0.4-2.0) Vancomycin Level Trough 9.0mcg/mL Procalcitonin 0.09ng/mL (0.00-0.08) Test 12/20/16 05:30 White Blood Count 9.9th/mm3 (3.8-10.1) Red Blood Count 4.61mil/mm3 (4.40-5.80) Hemoglobin 12.5g/dL (13.8-17.2) Hematocrit 38.1% (41.0-50.0) Mean Corpuscular Volume 82.6fL (81-100) Mean Corpuscular Hemoglobin 27.1pg (27.0-35.0) Mean Corpuscular Hemoglobin Concent 32.8% (32.0-37.0) Red Cell Distribution Width 14.0% (12.3-15.4) Platelet Count 334bil/L (150-400) Neutrophils (%) (Auto) 67.7% (40-74) Lymphocytes (%) (Auto) 17.8% (14-46) Monocytes (%) (Auto) 10.8% (4-12) Eosinophils (%) (Auto) 3.3% (0-5) Basophils (%) (Auto) 0.2% (0-3) Sodium Level 140mEq/L (134-144) Potassium Level 4.7mEq/L (3.5-5.2) Chloride Level 102mEq/L (97-108) Carbon Dioxide Level 21mmol/L (18-29) Blood Urea Nitrogen 7mg/dL (6-20) Creatinine 0.43mg/dL (0.76-1.27) Estimat Glomerular Filtration Rate 245mL/min (>59) Glucose Level 102mg/dL (60-99) Calcium Level 9.0mg/dL (8.5-10.1) Phosphorus Level 4.6mg/dL (2.5-4.9) Magnesium Level 1.9mg/dL (1.6-2.6) Total Bilirubin 0.3mg/dL (0.0-1.2) Aspartate Amino Transf (AST/SGOT) 29U/L (0-50) Alanine Aminotransferase (ALT/SGPT) 27U/L (0-44) Alkaline Phosphatase 85U/L (25-150) Total Protein 6.8g/dL (6.4-8.4) Albumin 3.1g/dL (3.4-5.0) Plan Impression Patient chart reviewed, patient interviewed and anesthestic plan with risks, benefits, and alternatives discussed, and informed consent obtained. ASA Physical Status: ASA2 Mod Systemic Disease Anesthetic Plan: MAC Bene/Risks/Altern/Consents: Yes HP Complete Prior to Induction: Yes Mando Bond MD Dec 20, 2016 14:33
[2016-12-20] MEDS ORDERED: Ondansetron 2 mg/mL 2 mL Inj IVPUSH PRN ×2 (14:35→16:25)
[2016-12-20] MEDS ORDERED: EPHEDrine Sulfate 50 mg/mL Inj IVPUSH PRN (14:35)
[2016-12-20] MEDS ORDERED: MetoCLOpramide 5 mg/mL 2 mL Inj IVPUSH PRN (14:35)
[2016-12-20] MEDS ORDERED: Dexamethasone 4 mg/mL Inj IVPUSH PRN (14:35)
[2016-12-20] MEDS ORDERED: Phenylephrine 10,000 mCg/mL Inj IVPUSH PRN (14:35)
--- NOTE | 2016-12-20 14:44 | PCM.PNMED ---
Subjective Date of Service Dec 20, 2016 Subjective Patient feels much better today Awaiting MARTHA per later today less painful. slept well afebrile, BCX showed MSSA Exam Vital Signs Vital Sign - Last Date Time Temp Pulse Resp B/P Pulse Ox O2 Delivery O2 Flow Rate FiO2 12/20/16 14:10 99 21 124/78 100 Room Air 12/20/16 13:23 36.7 Intake and Output 12/19/16 12/19/16 12/20/16 Cumulative From/Thru 15:00 23:00 07:00 12/16/16 22:07 - 12/20/16 06:02 Intake Total 1216 ml 241 ml 1695 ml 8607 ml Output Total 5100 ml Balance 1216 ml 241 ml 1695 ml 3507 ml Intake Oral 400 ml 1720 ml IV Total 1216 ml 241 ml 1295 ml 6887 ml Output Urine Total 5100 ml # Voids 2 2 # Bowel Movements 1 Exam NAD, comfortably laying down on the bed no JVD, MMM, no LAD RRR, nl s1, s2 no mrg CTAB, no w,c S,ND,NT,normoactive BS+ Rt foot, there is distinctive erythema, moderately tender, no demarcation, no ulcers/fluctuance IVs and Medications Medications Reviewed: Medications were reviewed in detail Lab and Diagnostics Result Diagram: 12/20/1652912/20/16529 Cardiac Echo Impressions Echocardiogram Report Name: MARITA PEARSON BStudy Date: 12/18/2016 Height: 67 in Hospital Exam Location: [facility] Weight: 164 lb Gender: Male BSA: 1.9 m2 : 1985 Age: 31 yrs BP: 128/73 mmHg Reason For Study: Endocarditis Ordering Physician: Performed By: [facility] Interpretation Summary The left ventricle is normal in size. The ejection fraction is estimated to be 55-60%. The right ventricle is normal in size, thickness and function. No significant valvular pathology seen. No obvious vegetation seen. Consider MARTHA if clinical suspicion for endocarditis is high. Assessment & Plan 31-year-old male with long hx of IVDU p/w Rt foot pain, fever. #sepsis, POA, SIRS+ wbc/HR/fever, source likely cellulitis, MRI 12/17 ruled out OM, abscess, fasciitis. prelim cultures staph+10/06. TTE neg for signs of endocarditis.BCX 2sets MSSA+ -HD stable, but had recurrent fever for [id number], clinically improving. -bolus 1liters in ED, another bolus 1liter this AM, followed by 100cc/hr, target MAP>65, stopped fluid today. -trend fever curve, procalcitonin, wbc -s/p vanc, meropenem, clindamycin, continue vanc, zosyn was stopped 12/18, likely switch to first gen cephalosporin, appreciate ID input -Tentative MARTHA scheduled today per #Diffuse rt foot erythema, tenderness, OPA, likely cellulitis -abx as above -morphine 1-4mg q2h for pain, monitor respiratory status to avoid excessive sedation -added MS contine 30mg bid 12/18,decreased to 15mg today given clinically improvement. #recent seizure hx, POA, would consider brain images if patient MS changes or another episode of seizure happens, -ativan 2mg prn for possible seizure -neurochecks q4h -try to avoid all drugs that lowers seizure threshold #Polysubstance abuse, nicotine/opioid, POA, UTOX+opioid, amphetamine, no ETOH, -appreciate SW/CM input, -monitor for possible opioid WD -Nicotine patch ordered PRN dispo: likely tomorrow home if oral abx diet:resume diet after MARTHA dvt ppx: LMWH Full Code VTE Prophylaxis: Sub-Q Enoxaparin VTE Mechanical Devices: Venous Foot Pump Resuscitation Status: CPR: Attempt Resuscitation Time spent 35nmin Reese Nguyen MD Dec 20, 2016 14:44
--- NOTE | 2016-12-20 15:15 | NUR ---
PROCEDURE COMPLETE. SEE POST PROCEDURE FLOW SHEETS
--- NOTE | 2016-12-20 15:55 | NUR ---
[place] [facility] [place]
[2016-12-20] MEDS ORDERED: Vancomycin Serum Trough XX ONE (16:00)
[2016-12-20] MEDS ORDERED: 0.9% Sodium Chloride 1,000 ML IV ONE (16:23)
[2016-12-20] MEDS ORDERED: HYDROcodone-APAP 5-325 mg Tablet PO PRN (16:25)
--- NOTE | 2016-12-20 18:03 | DRSVH ---
[facility] [address] [place] [address] Echocardiogram Report Name: MARITA PEARSON BStudy Date: 12/20/2016 Height: 67 in Hospital Exam Location: [facility] Weight: 164 lb Gender: Male BSA: 1.9 m2 : 1985 Age: 31 yrs BP: 126/80 mmHg Ordering Physician: Performed By: Obdulia Zhao Referring Physician: DR. Yuan RAMIREZ Interpretation Summary Normal sinus rhythm. Normal LV size, wall thickness, wall motion and EF There are normal chamber sizes. No significant valvular abnormalities. No evidence of vegetation Procedure: Informed consent for Transesophageal Echocardiogram, and use of a contrast agent as needed, was obtained prior to the procedure. The patient was brought to the [facility] in a fasting state. Sedation was managed by anesthesiologist; see anesthesiology notes for details. The transesophageal probe was passed without difficulty. The patient's vital signs, including blood pressure, heart rate, pulse oximetry and cardiac rhythm were monitored throughout the procedure and remained stable. A 2D transesophageal echocardiogram with spectral and color flow Doppler was performed. The usual views were obtained; basal, mid-esophageal, transgastric and aortic views. The patient tolerated the procedure well without evidence of orophangeal or esophageal trauma. The patient was in normal sinus rhythm during the exam. There were no complications. Left Ventricle: The left ventricle is normal in size, wall thickness, and systolic function without any focal wall motion abnormalities. Right Ventricle: The right ventricle is normal in size and function. Atria: Both atria are normal in size. There is no Doppler evidence for an atrial septal defect. Mitral Valve: The mitral valve leaflets appear normal. There is no evidence of stenosis, fluttering, or prolapse. There is no vegetation seen on the mitral valve. There is no mitral regurgitation noted. Aortic Valve: The aortic valve is trileaflet. The aortic valve opens well. There is no aortic valvular vegetation. No aortic regurgitation is present. Tricuspid Valve: The tricuspid valve leaflets are thin and pliable. There is no tricuspid valve vegetation. No tricuspid regurgitation. Pulmonic Valve: The pulmonic valve is not well seen, but is grossly normal. Reading Physician:06:02 PM
[2016-12-20] MEDS ORDERED: Morphine ER 15 mg (MS Contin) Tablet PO SCH (20:30)
--- NOTE | 2016-12-20 21:59 | NUR ---
NOC activity: Tolerated MARTHA procedure today, negative. continues w/ Vanco, otherwise LFA PIV TKO. tolerating OOB to shower tonight. R foot redness appears improved. ROM and weight bearing w/o problems. reports pain improved, tolerating decreased dose of MS contin. several visitors tonight, including his 2 children. CTM for changes.
[2016-12-21] MEDS: Sodium Chloride LOK Flush 10 mL Syringe IVFLUSH SCH (00:43)
[2016-12-21] MEDS: Vancomycin Inj 1,500 MG in 0.9% Sodium Chloride 500 ML IV SCH (00:43)
[2016-12-21 05:52] VITALS: BP 108/77; PULSE 87; RESP 18; O2SAT 100
[2016-12-21] MEDS ORDERED: CEPH-512 PO (07:34)
[2016-12-21] MEDS ORDERED: OXYC1TAB24 PO (07:50)
--- NOTE | 2016-12-21 07:53 | PCM.DIMED ---
Discharge Instructions Date of Service Dec 21, 2016 Dates of Hospitalization Dec 17, 2016 at 00:37 Discharge Diagnosis Discharge Diagnosis sepsis secondary to MSSA bactremia, cellulitis Medication Instructions please finish Keflex for 10days Diet No restrictions Activity No restrictions Patient Instructions You were hospitalized with severe infection in your leg, turning into systemic infection. Please note that we arranged appointment with new doctor and [facility]. Please check with them later for exact time of appointment You are strongly encouraged to follow up with primary doctor in 2weeks Follow-up Provider: [facility] Follow-up with PCP in: 2 weeks Reese Nguyen MD Dec 21, 2016 07:53
--- NOTE | 2016-12-21 08:35 | NUR ---
Social Work: Discharge Data: Pt is on day 4 of hospitalization. D/C orders are in. CDP met with pt yesterday and is pursuing outpt treatment for his chemical dependency. stated in rounds that pt will d/c with POABX. No further AUTOMATIC GRINDING MACHINE OPERATOR needs at this time. AUTOMATIC GRINDING MACHINE OPERATOR will continue to follow if needs arise. Assessment: Pt who is independent at baseline. Plan: Pt will d/c home today via POV and is pursuing outpt treatment for CD with CDP from [place]. No further AUTOMATIC GRINDING MACHINE OPERATOR needs at this time. AUTOMATIC GRINDING MACHINE OPERATOR will continue to follow if needs arise. AUSTYN Hitchcock
--- NOTE | 2016-12-21 08:40 | NUR ---
POC Nurse entered room at 0735 and patient states he needed to leave for court. RN paged Doctor Nguyen at 0745. Dr. Nguyen called back at 0755 and said he would be to floor to discharge patient. IV discontinued at [address] Nguyen's request. Discharge instructions were given to patient by QUENTIN Oquendo. Patient taken out in wheelchair at 0835, no s/s of distress or pain.
--- NOTE | 2016-12-22 16:42 | PCM.DC.MED ---
Discharge Summary Date of Service Dec 21, 2016 Dates of Hospitalization Date of Hospital Admission Dec 17, 2016 at 00:37 Date of Discharge: Dec 21, 2016 Providers: Admitting Physician: Alec Sanches MD Primary Care Physician: Nopcp Attending Physician: Alec Sanches MD Diagnosis at Time of Discharge Diagnosis at Time of Discharge sepsis secondary to MSSA bactremia frp, Rt foot cellulitis Polysubstance abuse, IVDU, opioid, amphetamine, Consultations ID Procedures XRay, CTs & MRIs PROCEDURE: X-RAY CHEST, TWO VIEWS ([id number]) INDICATIONS: metalic BB pre MRI TECHNIQUE: 2 views of the chest were acquired. COMPARISON: [facility], CR, XR CHEST 1VW (PORTABLE), 12/16/2016, 23: 37. FINDINGS: Surgical changes and devices: None. Lungs and pleura: No pleural effusions or pneumothorax. Lungs are clear. Mediastinum: Mediastinal contours are normal. Heart size is normal. Bones and chest wall: No suspicious bony abnormalities. Soft tissues appear unremarkable. Metallic BB type density overlying the anterior left chest wall. IMPRESSION: Left anterior chest wall BB type density redemonstrated otherwise normal chest. Dictated by: Wilfredo Love RRA Interpreted: Cedric Dixon MD on 12/17/2016 at 13:57 Transcribed by: JOSEE on 12/17/2016 at 13:58 Approved by: Cedric Dixon M.D. on 12/17/2016 at 14:50 PROCEDURE: MRI FOREFOOT RIGHT WITH AND WITHOUT CONTRAST ([id number]) INDICATIONS: 31-year-old male with drug abuse and right foot infection. TECHNIQUE: Noncontrast sagittal T1 spin echo and T2 fast spin echo with fat saturation, long-axis T1 spin echo and T2 fast spin echo with fat saturation; short-axis T1 spin echo, proton density fast spin echo, and T2 fast spin echo with fat saturation through the forefoot. Post-contrast short axis, long axis, and sagittal T1 spin echo with fat saturation through the forefoot. COMPARISON: None. FINDINGS: Image quality: Excellent. Bones and joints: No suspicious osseous enhancement or edema. No bone marrow contusions or metatarsal stress fractures. The sesamoid bones appear in expected positions, without internal edema. No metatarsophalangeal joint degeneration. No intraosseous lesions. Soft tissues: There is diffuse forefoot and midfoot subcutaneous edema, with associated regional enhancement dorsal to the medial midfoot. The visualized deeper plantar foot muscles demonstrate normal signal and bulk. Visualized flexor and extensor tendons appear intact, without tenosynovitis. No rim- enhancing fluid collections. IMPRESSION: Findings consistent with dorsal forefoot and midfoot cellulitis, without abscess formation. No evidence for pyomyositis or osteomyelitis. Dictated by: Vikash Pereira M.D. on 12/17/2016 at 14:54 Approved by: Vikash Pereira M.D. on 12/17/2016 at 15:01 Cardiac Echo Impression Echocardiogram Report Name: MARITA PEARSON BStudy Date: 12/18/2016 Height: 67 in Hospital Exam Location: [facility] Weight: 164 lb Gender: Male BSA: 1.9 m2 : 1985 Age: 31 yrs BP: 128/73 mmHg Reason For Study: Endocarditis Ordering Physician: Performed By: Kathleen [facility] Interpretation Summary The left ventricle is normal in size. The ejection fraction is estimated to be 55-60%. The right ventricle is normal in size, thickness and function. No significant valvular pathology seen. No obvious vegetation seen. Consider MARTHA if clinical suspicion for endocarditis is high. Brief History HPI obtained by 12/17 Pleasant 31yo man, IVDU with no other medical history reports swelling and redness in his right foot since this morning followed in the evening by intense pain whereupon he went to the emergency room. He states he felt that injecting his last dose in the top of his foot he hit a nerve or a bone and has trouble finding usable veins. He has not had an infection from drug use before. His drug use history started at age 12 when he was given marijuana by his father. He tried cocaine at age 13, progressed to pills, then smoking crushed oxycodone, and started injecting heroin at age 16. He has overdosed 3-4 times and gone through Rehab 4 times. He does want to try Rehab again. He is currently very hot, a little short of breath, denies headache, sore throat, chest pain, cough, nausea, diarrhea, constipation. He states he is feels chronically cold. Hospital Course 31-year-old male with long hx of IVDU p/w Rt foot pain, fever. #Sepsis, POA, SIRS+ wbc/HR/fever, source was cellulitis on Rt foot. MRI 12/17 ruled out OM, abscess, fasciitis. pt did have bacteremia MSSA+2/4 bottles. pt underwent TTE neg for signs of endocarditis. MARTHA also didn't show vegetation. patient was initially started on vancomycin, meropenem, clindamycin, in ED, continued vanc, zosyn. zosyn was stopped 12/18 based on cultures. Pain was controlled with MScontine 30mg bid, which was titrated off upon d/c. Since pt anxiously wanted to leave and had to attend to the court, pt was discharged with Keflex however, as per ID recommendation, this regimen might be suboptimal , recommended dalbavancin iv one dose, which was planned to [place] [facility] Plan was explained. Patient agreed to return to hospital given this life threatening infection. PICC for iv abx infusion was discouraged given his active IVDU. #recent seizure like hx, POA, pt didn't have any episode throughout hospitalization. #Polysubstance abuse, nicotine/opioid, UTOX+opioid, amphetamine, no ETOH, resources were given, pt seemed to be motivated for complete cessation of drugs. Exam Vital Signs (Last) Date Time Temp Pulse Resp B/P Pulse Ox O2 Delivery O2 Flow Rate FiO2 12/21/16 05:52 36.6 87 18 108/77 100 Room Air 12/20/16 15:30 4.00 Exam NAD, comfortably laying down on the bed no JVD, MMM, no LAD RRR, nl s1, s2 no mrg CTAB, no w,c S,ND,NT,normoactive BS+ Rt foot, there is distinctive erythema, moderately tender, no demarcation, no ulcers/fluctuance, significantly improved since admission Test 12/16/16 23:45 12/17/16 08:00 12/17/16 08:23 12/17/16 12:15 Band Neutrophils % 0% (1-5) Erythrocyte Sedimentation Rate 30mm/hr (0-15) Hold Purple Top Tube Received (Received) Prothrombin Time 9.7sec (8.1-12.5) Prothromb Time International Ratio 0.91ratio Activated Partial Thromboplast Time 30.4sec (22.8-33.0) D-Dimer 0.59mg/L FEU (<0.50) Hold Blue Top Tube Received (Received) Pro-B-Type Natriuretic Peptide 49.90pg/mL (0-86) Lipase 12U/L (13-60) Thyroid Stimulating Hormone (TSH) 0.693uIU/mL (0.450-4.500) Hold [place] Top Tube Received (Received) Hold Silva Top Tube Received (Received) Alcohols < 10mg/dL (0-10) Urine Color Yellow (YELLOW) Urine Appearance Hazy (CLEAR,HAZY) Urine pH 6.5 (5.0-8.0) Urine Specific [place] 1.030 (1.003-1.035) Urine Protein Tracemg/dL (NEG,TRACE) Urine Glucose (UA) Negativemg/dL (NEGATIVE) Urine Ketones Negativemg/dL (NEGATIVE) Urine Occult Blood Negative (NEGATIVE) Urine Nitrite Negative (NEGATIVE) Urine Bilirubin Negative (NEGATIVE) Urine Urobilinogen Normalmg/dL (NORMAL) Urine Leukocyte Esterase Negative (NEGATIVE) Urine RBC 0-2/hpf (0-2) Urine WBC 0-5/hpf (0-5) Urine Epithelial Cells Occasional/hpf (NONE-MOD) Urine Crystals None seen (NONE SEEN) Urine Bacteria None/hpf (NONE-FEW) Urine Hyaline Casts None/lpf (NONE) Urine Granular Casts None seen (NONE SEEN) Urine Waxy Casts None seen (NONE SEEN) Urine Red Blood Cell Casts None seen (NONE SEEN) Urine White Blood Cell Casts None seen (NONE SEEN) Urine Mucus Present (None Seen) Urine Trichomonas None seen (NONE SEEN) Urine Yeast None (NONE SEEN) Urinalysis Comment Urine Culture Reflexed Not indicated Urine Opiates Screen Positive Urine Methadone Screen Negative Urine Barbiturates Screen Negative Urine Amphetamines Screen Positive Urine Benzodiazepines Screen Negative Urine Cocaine Metabolite Screen Negative Urine Cannabinoids Screen Negative Hepatitis A IgM Antibody Negative (Negative) Hepatitis B Surface Antigen Negative (Negative) Hepatitis B Core IgM Antibody Negative (Negative) Hepatitis C Antibody <0.1s/co ratio (0.0-0.9) Hepatitis C Comment Comment (.) HIV (1&2) Ag and Ab, 4th Generation Non reactive (Non Reactive) Test 12/17/16 15:45 12/17/16 21:50 12/19/16 05:20 12/20/16 05:30 Hold Red Top Tube Received (Received) Lactic Acid Level 2.2mmol/L (0.4-2.0) Procalcitonin 0.09ng/mL (0.00-0.08) White Blood Count 9.9th/mm3 (3.8-10.1) Red Blood Count 4.61mil/mm3 (4.40-5.80) Hemoglobin 12.5g/dL (13.8-17.2) Hematocrit 38.1% (41.0-50.0) Mean Corpuscular Volume 82.6fL (81-100) Mean Corpuscular Hemoglobin 27.1pg (27.0-35.0) Mean Corpuscular Hemoglobin Concent 32.8% (32.0-37.0) Red Cell Distribution Width 14.0% (12.3-15.4) Platelet Count 334bil/L (150-400) Neutrophils (%) (Auto) 67.7% (40-74) Lymphocytes (%) (Auto) 17.8% (14-46) Monocytes (%) (Auto) 10.8% (4-12) Eosinophils (%) (Auto) 3.3% (0-5) Basophils (%) (Auto) 0.2% (0-3) Sodium Level 140mEq/L (134-144) Potassium Level 4.7mEq/L (3.5-5.2) Chloride Level 102mEq/L (97-108) Carbon Dioxide Level 21mmol/L (18-29) Blood Urea Nitrogen 7mg/dL (6-20) Creatinine 0.43mg/dL (0.76-1.27) Estimat Glomerular Filtration Rate 245mL/min (>59) Glucose Level 102mg/dL (60-99) Calcium Level 9.0mg/dL (8.5-10.1) Phosphorus Level 4.6mg/dL (2.5-4.9) Magnesium Level 1.9mg/dL (1.6-2.6) Total Bilirubin 0.3mg/dL (0.0-1.2) Aspartate Amino Transf (AST/SGOT) 29U/L (0-50) Alanine Aminotransferase (ALT/SGPT) 27U/L (0-44) Alkaline Phosphatase 85U/L (25-150) Total Protein 6.8g/dL (6.4-8.4) Albumin 3.1g/dL (3.4-5.0) Test 12/20/16 16:25 Vancomycin Level Trough 12.8mcg/mL Discharge Medications Discharge Medications Cephalexin (Keflex) 500 Mg Capsule 500 MG PO QID Prescribed by: REESE ELIZABETH MD As needed oxyCODONE-Acetaminophen 5-325 mg (oxyCODONE-Acetaminophen 5-325 mg) 1 Each Tablet 1 TAB PO Q4H PRN PRN For Pain Prescribed by: REESE ELIZABETH MD Miscellaneous Medications ([None]) (Reported) Additional med instructions please finish Keflex for 10days Followup Plan Disposition: home Discharge Diet: No restrictions Discharge Activity: No restrictions Patient Instructions You were hospitalized with severe infection in your leg, turning into systemic infection. Please note that we arranged appointment with new doctor and [facility]. Please check with them later for exact time of appointment You are strongly encouraged to follow up with primary doctor in 2weeks Follow-up Provider: [facility] Follow-up with PCP in: 2 weeks Time spent 65min Reese Elizabeth MD Dec 21, 2016 15:41
== END 2016-12-21 08:40 | disposition home or self-care (01) | DRG 872 ==
LOC: SED 21:55 → MPC 12-17 00:37
PROVIDERS: ADMIT Hospitalist; ATTEND Hospitalist
PROC: B246ZZ4 Ultrasonography of Right and Left Heart, Transesophageal (ICD-10-PCS; principal; 2016-12-20)
DX: A41.01 Sepsis due to Methicillin susceptible Staphylococcus aureus (principal); L03.115 Cellulitis of right lower limb; F17.200 Nicotine dependence, unspecified, uncomplicated; F12.90 Cannabis use, unspecified, uncomplicated; F11.10 Opioid abuse, uncomplicated

== ENCOUNTER 2017-05-17 20:18 | Emergency (ER) | payer SELFPAY ==
[~2017-05-17] VITALS: Ht 172.7 cm; Wt 73.6 kg
[~2017-05-17 20:18] MED LIST: CEPH-512 PO; OXYC1TAB24 PO
[2017-05-17 20:21] VITALS: BP 129/87; PULSE 111; RESP 16; O2SAT 100
--- NOTE | 2017-05-17 22:57 | ED.REPORT ---
HPI-Rash / Abscess Date of Service May 17, 2017 ED Provider: Jonathon Magallon MD Patient is a 32 y/o male with history of MRSA and IV heroin use who presents to the ED complaining of a painful abscess on his upper right arm onset 2 days ago. He reports injecting near the area in his arm. Patient last used heroin around 1730 this evening and uses approximately 1 gram a day. The patient states he has never had an abscess before. Nursing Notes Stated Complaint: ABSCESS ON LEFT ARM Chief Complaint: General Complaint Nursing Notes Reviewed: Yes Allergies: Coded Allergies: apple (Verified Allergy, Unknown, 05/17/17) onion (Verified Allergy, Unknown, 05/17/17) Scheduled Buprenorphine/Naloxone 8-2 mg (Buprenorphine/Naloxone 8-2 mg) 1 Each Tab.subl 2 TABLET SL DAILY Cephalexin (Keflex) 500 Mg Capsule 500 MG PO QID Scheduled PRN oxyCODONE-Acetaminophen 5-325 mg (oxyCODONE-Acetaminophen 5-325 mg) 1 Each Tablet 1 TAB PO Q4H PRN PRN For Pain Miscellaneous Medications ([None]) General Time Seen by MD: 21:56 Chief Complaint Abscess Hx Obtained From: Patient Arrived By: Walk-in Onset Occurred: 2 days ago Symptom Duration: Since onset Location: : Arm Quality: Painful Severity: Current: Moderate Recent Healthcare: No recent hospitalization, Recent doctor visit Similar Sx Previous: No Past Medical History Past Medical History IV drug abuse MRSA Past Surgical History R wrist tendon repair Smoking History Current Every Day Smoker, Heavy Tobacco Smoker Social History Drug Use: IV drugs Other Social History: Good social support Ambulatory Status Independent Review of Systems Review of Systems Note: +abscess on right mid bicep Musculoskeletal: Reports: Extremity pain Complete sys rev & neg: except as marked. Physical Exam Initial Vital Signs Vital Signs (First) Date Time Temp Pulse Resp B/P Pulse Ox O2 Delivery O2 Flow Rate FiO2 05/17/17 20:21 37.0 111 16 129/87 100 Room Air Initial VS: Reviewed, Vital signs abnormal General/Constitutional: Awake, Alert Nodding off during conversation. Skin: Color NL, Warm, Dry Head / Eyes: Atraumatic, Normocephalic Respiratory / Chest: Atraumatic, Breath sounds NL, Breath sounds = bilat, No respiratory distress Cardiovascular: Heart rate NL, Regular rhythm, Heart sounds NL, No gallop, No murmurs, No rubs UPPER EXTREMITY: Multiple track maria and nodules along veins 2cm x 3cm abscess with minimal surrounding erythema on the right mid bicep Lower Extremity / Pelvis / MS: Atraumatic, Full range of motion Interpretation & Diagnostics Lab Results Interpretation Test 05/17/17 23:04 Urine Color Yellow (YELLOW) Urine Appearance Clear (CLEAR,HAZY) Urine pH 5.5 (5.0-8.0) Urine Specific [place] >1.030 (1.003-1.035) Urine Protein Tracemg/dL (NEG,TRACE) Urine Glucose (UA) Negativemg/dL (NEGATIVE) Urine Ketones Negativemg/dL (NEGATIVE) Urine Occult Blood Negative (NEGATIVE) Urine Nitrite Negative (NEGATIVE) Urine Bilirubin Negative (NEGATIVE) Urine Urobilinogen Normalmg/dL (NORMAL) Urine Leukocyte Esterase Negative (NEGATIVE) Urine RBC 0-2/hpf (0-2) Urine WBC 0-5/hpf (0-5) Urine Epithelial Cells Few/hpf (NONE-MOD) Urine Crystals None seen (NONE SEEN) Urine Bacteria Few/hpf (NONE-FEW) Urine Hyaline Casts None/lpf (NONE) Urine Granular Casts None seen (NONE SEEN) Urine Waxy Casts None seen (NONE SEEN) Urine Red Blood Cell Casts None seen (NONE SEEN) Urine White Blood Cell Casts None seen (NONE SEEN) Urine Mucus Present (None Seen) Urine Trichomonas None seen (NONE SEEN) Urine Yeast None (NONE SEEN) Urinalysis Comment None Urine Culture Reflexed Not indicated Procedures Incision & Drainage Abscess Time: 22:40 Procedure Performed by: ED physician Consent / Setup / Site Prep: Consent from patient, Time-out performed, Hand hygiene observed, Stand sterile technique Location of Abscess: Right mid biceps Skin Preparation Agent: Shurclens Local Anesthesia: Lidocaine w epi 1%, 27g needle Incised Abscess with Scalpel: #11 Pus Drained: Medium Irrigation: Yes, Copious (120cc) Post-Procedure / Complications: Packing placed, Culture obtained, Gram stain ordered, Dressing applied, No complications, Condition improved, Tolerated procedure well, Patient stable Re-Eval/Medical Decision Med Decision/Clinical Course 32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 His veins are deteriorated to the point where he has multiple misses. Uncomplicated I&D of the abscess. Culture pending. Trimethoprim sulfamethoxazole dispensed. Patient is interested in getting off of Suboxone. He was given a bridging prescription of Suboxone for 5 days and instructions on how to do priority access for an appointment at [facility]. Source of Hx: Old records Re-Evaluation/Progress : Time of Eval: 22:40 Re-Evaluation/Progress Note: Discussed with pt of the abscess drainage plan. Pt understands and agrees to procedure. All quesions addressed. Pt rechecked. Informed pt of diagnosis and plan for discharge. The pt understands and agrees with plan for discharge. F/U instructions and RTER warnings given. All questions addressed at this time. Counseled Regarding: Diagnosis, Need for follow-up, When/why to return to ED Discharge & Departure Impression: Primary Impression: Abscess of right arm Additional Impression: Opioid use disorder, moderate, dependence Disposition: Home Discharge Condition All VS Reviewed: Yes Condition: Improved Patient Instructions: Abscess (ED), Buprenorphine/Naloxone (Into the mouth) Additional Instructions: The abscess was drained and packed. Remove half of the packing in 2 days and then remove it totally in 4 days. Follow-up here in the emergency room if it worsens. Trimethoprim sulfamethoxazole DS one tab by mouth twice a day, #20 dispensed. Buprenorphine/naloxone (Suboxone) 8/2 tabs, 2 tabs daily starting about 24 hours after your last use., #10 prescription written. Call the [facility] priority access line at [phone] for the next available appointment for maintenance medication. Do not use any sedatives, any opiates, or any alcohol. Call me at [phone] between the hours of 9 PM and 6 AM for the next few nights if you have any questions (I will not be here Saturday ). Referrals: NOPCP (PCP) Scribe Attestation Portion of this note were transcribed by Deo Porter and Johanna Araiza. I, Dr. Jonathon Magallon personally performed the history, physical exam and medical decision-making; I reviewed and confirmed the accuracy of the information in the transcribed note. Signed by: Deo Porter and Chino Lazar, 05/17/17. Jonathon Magallon MD May 17, 2017 22:57 Emma Araiza May 17, 2017 23:00 Deo Porter May 17, 2017 23:19
[2017-05-17] MEDS ORDERED: BUPR1TAB36 SL (23:13)
[2017-05-17 23:23] VITALS: BP 133/77; PULSE 101; RESP 20; O2SAT 98
[2017-05-17 23:24] LABS: COLOR,URINE YELLOW (YELLOW)
[2017-05-17 23:25] LABS: APPEARANCE,URINE CLEAR (CLEAR,HAZY); OCCULT BLOOD,URINE NEGATIVE (NEGATIVE); PH,URINE 5.5 (5.0-8.0); UROBILINOGEN,URINE NORMAL (NORMAL)
[2017-05-18] MEDS ORDERED: _Trimethoprim-Sulfa 160/800 mg Tablet PO SCH (08:30)
== END 2017-05-17 23:25 | disposition home or self-care (01) ==
LOC: SED 20:18
DX: L02.413 Cutaneous abscess of right upper limb (principal); F11.20 Opioid dependence, uncomplicated; F17.200 Nicotine dependence, unspecified, uncomplicated; Z86.14 Personal history of Methicillin resistant Staphylococcus aureus infection; Z91.018 Allergy to other foods